=== PATIENT | male | born 1945 | race Two or more races ===

== ENCOUNTER 2021-12-19 08:53 | Outpatient (CLI) | payer OTHER | END 2021-12-19 08:58 | disposition home or self-care (01) | LOC: RX STUDY 08:53 | PROVIDERS: ATTEND Otolaryngology Otolaryngology/Facial Plastic Surgery | DX: R13.10 Dysphagia, unspecified (principal) ==

== ENCOUNTER 2022-01-20 10:36 | Outpatient (CLI) | payer OTHER | END 2022-01-20 14:29 | disposition home or self-care (01) | LOC: EKG 10:36 | PROVIDERS: ATTEND Internal Medicine Cardiovascular Disease | DX: I10 Essential (primary) hypertension (principal) ==